=== PATIENT | female | born 1990 | race Caucasian/White ===

== ENCOUNTER 2018-04-04 10:01 | Emergency (ER) | payer BC ==
[2018-04-04] MEDS ORDERED: MORPHINE SULFATE 4 MG INJ IV ONE ×2 (10:32→12:18)
[2018-04-04] MEDS ORDERED: Sodium Chloride 0.9% 1000 ML 1,000 ML IV STA (10:32)
[2018-04-04] MEDS ORDERED: Phenergan 25 MG INJ IV ONE (10:33)
[2018-04-04] MEDS ORDERED: Sodium Chloride 0.9% 1000 ML 1,000 ML ONE (10:37)
[2018-04-04] MEDS ORDERED: MORPHINE SULFATE 4 MG INJ ONE ×2 (10:37→12:20)
[2018-04-04] MEDS ORDERED: Phenergan 25 MG INJ ONE (10:37)
--- NOTE | 2018-04-04 10:37 | ERPHSYRPT ---
- History of Present Illness Time Seen by Provider: 04/04/18 10:33 Historian: patient Exam Limitations: no limitations Patient Subjective Stated Complaint: ruq abd pain, nausea, left flank pain, and mid back pain for three days. also having some nausea. denies vomiting. states has had this pain before and is going to get worked up for gallbladder disease. Triage Nursing Assessment: ambulated to room per self without difficulty. skin w/d, color normal, resp easy. holding upper abd. bowel sounds hypoactive, abd soft, tender upper quads. Physician History: 27-year-old white female who denies significant past medical history. Arrives with complaint of epigastric pain and nausea symptoms going on off and on for a year this time for the past 3 days positive nausea no vomiting no fevers. Past medical history includes tonsillectomy adenoidectomy left arm fracture stent for kidney stones. Patient has had a Nexplanon implanted and does not know when her last period was. Social history positive for tobacco use denies alcohol or illicit drug use. Timing/Duration: day(s) Activities at Onset: none (3 days) Quality: cramping Abdominal Pain Onset Location: epigastric Pain Radiation: no radiation Associated Symptoms: back, nausea, No chest pain, No diaphoresis, No diarrhea, No fever/chills, No fatigue, No headache, No heartburn, No loss of appetite, No neck pain, No rash, No shortness of breath, No syncope, No vomiting Previous symptoms: other (patient has had similar symptoms off and on for 1 year ) Allergies/Adverse Reactions: No Known Drug Allergies Allergy (Unverified 04/04/18 10:30) Home Medications: Citalopram Hydrobromide [Celexa] 10 mg PO DAILY 04/04/18 [History] Etonogestrel [Nexplanon] 68 mg SQ UD 04/04/18 [History] Hx Tetanus, Diphtheria Vaccination/Date Given: No Hx Influenza Vaccination/Date Given: Yes Hx Pneumococcal Vaccination/Date Given: No - Review of Systems Constitutional: No Fever, No Chills Eyes: No Symptoms Ears, Nose, & Throat: No Symptoms Respiratory: No Cough, No Dyspnea Cardiac: No Chest Pain, No Edema, No Syncope Abdominal/Gastrointestinal: Abdominal Pain, Nausea, No Vomiting, No Diarrhea, No Constipation, No Hematemesis, No Hematochezia, No Melena, No Dysphagia, No Appetite Changes Genitourinary Symptoms: No Dysuria Musculoskeletal: No Back Pain, No Neck Pain Skin: No Rash Neurological: No Dizziness, No Focal Weakness, No Sensory Changes Psychological: No Symptoms Endocrine: No Symptoms All Other Systems: Reviewed and Negative - Past Medical History Pertinent Past Medical History: Yes History: Other Psycho-Social History: Depression Female Reproductive Disorders: Other Other Medical History: kidney stones - Past Surgical History Past Surgical History: Yes Genitourinary: Other Other Surgical History: ureteral stent - Social History Smoking Status: Current every day smoker Exposure to second hand smoke: No Drug Use: none Patient Lives Alone: No - Female History Hx Last Menstrual Period: unknown Hx Now: No - Nursing Vital Signs Nursing Vital Signs: Initial Vital Signs Temperature 98.5 F 04/04/18 10:07 Pulse Rate 99 H 04/04/18 10:07 Respiratory Rate 16 04/04/18 10:07 Blood Pressure 143/84 04/04/18 10:07 O2 Sat by Pulse Oximetry 99 04/04/18 10:07 Pain Scale Pain Intensity 8 - Physical Exam General Appearance: no apparent distress, alert Eye Exam: PERRL/EOMI, eyes nml inspection Ears, Nose, Throat Exam: normal ENT inspection, pharynx normal, moist mucous membranes Neck Exam: normal inspection, non-tender, supple, full range of motion Respiratory Exam: normal breath sounds, lungs clear, No respiratory distress Cardiovascular Exam: regular rate/rhythm, normal heart sounds Gastrointestinal/Abdomen Exam: soft, normal bowel sounds, tenderness ( epigastric tenderness), No distention, No mass, No guarding, No pulsatile mass Back Exam: normal inspection, normal range of motion, No CVA tenderness, No vertebral tenderness Extremity Exam: normal inspection, normal range of motion, pelvis stable Neurologic Exam: alert, oriented x 3, cooperative, cottrell operator II-XII nml as tested, normal mood/affect, nml cerebellar function, sensation nml, No motor deficits Skin Exam: normal color, warm, dry SpO2 Interpretation: normal (99%) SpO2: 99 Oxygen Delivery: Room Air - Course Nursing assessment & vital signs reviewed: Yes EKG Interpreted by Me: RATE (69 bpm), Sinus Rhythm, NORMAL AXIS, Other (EKG sinus rhythm, 69 bpm, normal axis, no acute ST or T wave changes, normal EKG) - CT Exams Abdomen/Pelvis CT Interpretation: Tele-radiologist Report (CT abdomen and pelvis: Impression 1. Nonobstructing nephrolithiasis. 2. Bilateral hydronephrosis with the ureter is dilated to the pelvis. No stones or an etiology for the obstruction is identified. 3. Cystic lesion posterior to the uterus questionably ovarian) Ordered Tests: Active Orders 24 hr Category Date Time Status EKG-ER Only STAT Care 04/04/18 12:17 Active IV Insertion STAT Care 04/04/18 10:32 Active ABDOMEN WITHOUT CONTRAST [CT] Stat Exams 04/04/18 11:18 Taken AMYLASE Stat Lab 04/04/18 10:35 Completed CBC W DIFF Stat Lab 04/04/18 10:35 Completed CMP Stat Lab 04/04/18 10:35 Completed HCG QUALITATIVE,SERUM Stat Lab 04/04/18 10:35 Completed LIPASE Stat Lab 04/04/18 10:35 Completed UA W/RFX UR CULTURE Stat Lab 04/04/18 10:35 Completed Urine Triage Profile Stat Lab 04/04/18 10:35 Completed Medication Summary Discontinued Medications Generic Name Dose Route Start Last Admin Trade Name Freq PRN Reason Stop Dose Admin Sodium Chloride 1,000 mls @ 999 mls/hr 04/04/18 10:32 04/04/18 12:19 Sodium Chloride 0.9% 1000 Ml IV 04/04/18 11:32 Infused .Q1H1M STA Infusion Sodium Chloride Confirm 04/04/18 10:37 Sodium Chloride 0.9% 1000 Ml Administered 04/04/18 10:38 Dose 1,000 mls @ ud .ROUTE .STK-MED ONE Morphine Sulfate 4 mg 04/04/18 10:32 04/04/18 10:44 Morphine Sulfate 4 Mg Inj IV 04/04/18 10:33 4 mg STAT ONE Administration Morphine Sulfate Confirm 04/04/18 10:37 Morphine Sulfate 4 Mg Inj Administered 04/04/18 10:38 Dose 4 mg .ROUTE .STK-MED ONE Morphine Sulfate 4 mg 04/04/18 12:18 04/04/18 12:24 Morphine Sulfate 4 Mg Inj IV 04/04/18 12:19 4 mg STAT ONE Administration Morphine Sulfate Confirm 04/04/18 12:20 Morphine Sulfate 4 Mg Inj Administered 04/04/18 12:21 Dose 4 mg .ROUTE .STK-MED ONE Promethazine HCl 12.5 mg 04/04/18 10:33 04/04/18 10:44 Phenergan 25 Mg Inj IV 04/04/18 10:34 12.5 mg STAT ONE Administration Promethazine HCl Confirm 04/04/18 10:37 Phenergan 25 Mg Inj Administered 04/04/18 10:38 Dose 25 mg .ROUTE .STK-MED ONE Lab/Rad Data: Laboratory Result Diagrams 04/04/18 10:35 04/04/18 10:35 Laboratory Results 04/04/18 04/04/18 04/04/18 Range/Units 10:35 10:35 10:35 WBC (4.0-10.5) K/mm3 RBC (4.1-5.4) M/mm3 Hgb (12.0-16.0) gm/dl Hct (35-47) % MCV (78-100) fl MCH (26-32) pg MCHC (32-36) g/dl RDW (11.5-14.0) % Plt Count (150-450) K/mm3 MPV (6-9.5) fl Gran % (36.0-66.0) % Eos # (Auto) (0-0.5) Absolute Lymphs (auto) (1.0-4.6) Absolute Monos (auto) (0.0-1.3) Lymphocytes % (24.0-44.0) % Monocytes % (0.0-12.0) % Eosinophils % (0.00-5.0) % Basophils % (0.0-0.4) % Absolute Granulocytes (1.4-6.9) Basophils # (0-0.4) Sodium (137-145) mmol/L Potassium (3.5-5.1) mmol/L Chloride (98-107) mmol/L Carbon Dioxide (22-30) mmol/L Anion Gap (5-15) MEQ/L BUN (7-17) mg/dL Creatinine (0.52-1.04) mg/dL Estimated GFR ML/MIN Glucose (74-106) mg/dL Calcium (8.4-10.2) mg/dL Total Bilirubin (0.2-1.3) mg/dL AST (14-36) U/L ALT (0-35) U/L Alkaline Phosphatase (38-126) U/L Serum Total Protein (6.3-8.2) g/dL Albumin (3.5-5.0) g/dL Amylase (30-110) U/L Lipase (23-300) U/L Serum , Qual NEGATIVE (Negative) Ur Collection Type CLEAN CATCH Urine Color YELLOW (YELLOW) Urine Appearance HAZY (CLEAR) Urine pH 8.0 (5-6) Ur Specific [place] 1.010 (1.005-1.025) Urine Protein NEGATIVE (Negative) Urine Ketones NEGATIVE (NEGATIVE) Urine Blood NEGATIVE (0-5) Rohith/ul Urine Nitrite NEGATIVE (NEGATIVE) Urine Bilirubin NEGATIVE (NEGATIVE) Urine Urobilinogen NORMAL (0-1) mg/dL Ur Leukocyte Esterase NEGATIVE (NEGATIVE) Urine Culture Reflexed NO (NO) Urine Glucose NEGATIVE (NEGATIVE) mg/dL Urine Opiates Level NEGATIVE (NEGATIVE) Ur Methadone NEGATIVE (NEGATIVE) Urine Barbiturates NEGATIVE (NEGATIVE) Ur Phencyclidine (PCP) NEGATIVE (NEGATIVE) Urine Amphetamine NEGATIVE (NEGATIVE) U Benzodiazepine Level NEGATIVE (NEGATIVE) Urine Cocaine NEGATIVE (NEGATIVE) Urine Marijuana (THC) NEGATIVE (NEGATIVE) Specimen Received 04/04/18 1030 04/04/18 04/04/18 Range/Units 10:35 10:35 WBC 8.7 (4.0-10.5) K/mm3 RBC 4.59 (4.1-5.4) M/mm3 Hgb 14.2 (12.0-16.0) gm/dl Hct 41.8 (35-47) % MCV 91.1 (78-100) fl MCH 30.9 (26-32) pg MCHC 34.0 (32-36) g/dl RDW 13.4 (11.5-14.0) % Plt Count 234 (150-450) K/mm3 MPV 10.9 H (6-9.5) fl Gran % 66.7 H (36.0-66.0) % Eos # (Auto) 0.25 (0-0.5) Absolute Lymphs (auto) 1.98 (1.0-4.6) Absolute Monos (auto) 0.62 (0.0-1.3) Lymphocytes % 22.8 L (24.0-44.0) % Monocytes % 7.1 (0.0-12.0) % Eosinophils % 2.9 (0.00-5.0) % Basophils % 0.5 (0.0-0.4) % Absolute Granulocytes 5.81 (1.4-6.9) Basophils # 0.04 (0-0.4) Sodium 141 (137-145) mmol/L Potassium 3.8 (3.5-5.1) mmol/L Chloride 106 (98-107) mmol/L Carbon Dioxide 25 (22-30) mmol/L Anion Gap 14.6 (5-15) MEQ/L BUN 13 (7-17) mg/dL Creatinine 0.58 (0.52-1.04) mg/dL Estimated GFR > 60.0 ML/MIN Glucose 95 (74-106) mg/dL Calcium 9.5 (8.4-10.2) mg/dL Total Bilirubin 0.30 (0.2-1.3) mg/dL AST 15 (14-36) U/L ALT 17 (0-35) U/L Alkaline Phosphatase 53 (38-126) U/L Serum Total Protein 7.7 (6.3-8.2) g/dL Albumin 4.7 (3.5-5.0) g/dL Amylase 98 (30-110) U/L Lipase 99 (23-300) U/L Serum , Qual (Negative) Ur Collection Type Urine Color (YELLOW) Urine Appearance (CLEAR) Urine pH (5-6) Ur Specific [place] (1.005-1.025) Urine Protein (Negative) Urine Ketones (NEGATIVE) Urine Blood (0-5) Rohith/ul Urine Nitrite (NEGATIVE) Urine Bilirubin (NEGATIVE) Urine Urobilinogen (0-1) mg/dL Ur Leukocyte Esterase (NEGATIVE) Urine Culture Reflexed (NO) Urine Glucose (NEGATIVE) mg/dL Urine Opiates Level (NEGATIVE) Ur Methadone (NEGATIVE) Urine Barbiturates (NEGATIVE) Ur Phencyclidine (PCP) (NEGATIVE) Urine Amphetamine (NEGATIVE) U Benzodiazepine Level (NEGATIVE) Urine Cocaine (NEGATIVE) Urine Marijuana (THC) (NEGATIVE) Specimen Received - Progress Progress: improved Progress Note: 04/04/18 13:01 27-year-old white female who states she's had abdominal pain off and on for the past year. But states that she is having severe abdominal pain for the past 3 days. Pain initially was as stated that it was in the epigastric region however she is told the nurse that she's been having pain on bilateral right than left mid abdominal area. Over the last couple days. Patient has been nauseous. She gives me a history of having a urinary stent secondary kidney stones. Patient is given a liter of saline Phenergan, given morphine 4 mg IV 2. She is feeling somewhat improved. I did get a CT of her abdomen which shows nonobstructing nephrolithiasis, bilateral hydronephrosis with the dilated to the pelvis no stones or etiology of the obstruction is identified. There is a cystic lesion posterior to the uterus questionably ovarian. Patient is improved but continues with complaint of pain mostly in the epigastric region. Patient's gallbladder is normal on the CT amylase lipase and CBC CMP are normal as well urine is normal. Patient states she has seen Dr. Ritter in the past for her kidneys. Will talk with him due to the patient's hydronephrosis. 04/04/18 13:21 I discussed the patient's case with Dr Ritter, the patient's urologist he requested that I have the patient call his office tomorrow am at 09:00 and have her plan to see him in his office tomorrow afternoon, Will write a prescription for norco and phenergan , and have her plan to see Dr Ritter tomorro transientw. - Departure Time of Disposition: 13:25 Departure Disposition: Home Clinical Impression: Abdominal pain Qualifiers: Abdominal location: epigastric Qualified Code(s): R10.13 - Epigastric pain Hydronephrosis Qualifiers: Hydronephrosis type: unspecified Qualified Code(s): N13.30 - Unspecified hydronephrosis Condition: Fair Critical Care Time: No Referrals: SADA MAYBERRY MD [Primary Care Provider] - Instructions: Acute Abdomen (Belly Pain) Additional Instructions: Return home . Plenty of fluids clear fluids only 24-48 hours if abdominal pain. Follow-up with Dr. Jolly tomorrow call his office at 9 AM to arrange an appointment. [place] 5/325 #12 one orally every 4-6 hours as needed for pain.. Phenergan 25 mg #12 one orally every 4-6 hours as needed for nausea. Return for acute distress or for severe symptoms. Prescriptions: Hydrocodone/Acetaminophen [[place] 5-325 Tablet] 1 tab PO Q4-6HPRN PRN #12 tablet MDD 6 tablets PRN Reason: Pain Promethazine HCl 25 mg [Phenergan 25 mg] 25 mg PO Q4-6HPRN PRN #12 tablet PRN Reason: nausea and vomiting
[2018-04-04 10:40] LABS: Appearance HAZY (CLEAR); Bilirubin NEGATIVE (NEGATIVE); Blood NEGATIVE Ery/ul (0-5); Glucose NEGATIVE (NEGATIVE); Ketones NEGATIVE (NEGATIVE); Leukocyte Esterase NEGATIVE (NEGATIVE); Nitrite NEGATIVE (NEGATIVE); Protein,Urine Dip NEGATIVE (Negative); Urobilinogen NORMAL mg/dL (0-1)
[2018-04-04 10:43] LABS: BASOPHIL % 0.5 % (0.0-0.4); Basophil (Absolute #) 0.04 (0-0.4); Eosinophil % 2.9 % (0.00-5.0); Eosinophil (Absolute #) 0.25 (0-0.5); Granulocyte Absolute (ANC) 5.81 (1.4-6.9); Granulocytes % 66.7 % (36.0-66.0); Hematocrit 41.8 % (35-47); Hemoglobin 14.2 gm/dl (12.0-16.0); Lymphocyte (Absolute #) 1.98 (1.0-4.6); Lymphocytes % 22.8 % (24.0-44.0); Mean Cell Volume 91.1 fl (78-100); Mean Corpuscular Hemoglobin 30.9 pg (26-32); Mean Platelet Volume 10.9 fl (6-9.5); Monocyte (Absolute #) 0.62 (0.0-1.3); Monocytes % 7.1 % (0.0-12.0); Platelet Count 234 K/mm3 (150-450); Red Blood Count 4.59 M/mm3 (4.1-5.4); Red Cell Distribution Width 13.4 % (11.5-14.0); White Blood Count 8.7 K/mm3 (4.0-10.5)
[2018-04-04 11:02] LABS: ALBUMIN 4.7 g/dL (3.5-5.0); ALKALINE PHOSPHATASE 53 U/L (38-126); AMYLASE 98 U/L (30-110); ANION GAP 14.6 MEQ/L (5-15); BLOOD UREA NITROGEN 13 mg/dL (7-17); CHLORIDE 106 mmol/L (98-107); Calcium 9.5 mg/dL (8.4-10.2); Carbon Dioxide 25 mmol/L (22-30); Creatinine 1 0.58 mg/dL (0.52-1.04); Glucose 95 mg/dL (74-106); LIPASE 99 U/L (23-300); Potassium 3.8 mmol/L (3.5-5.1); SGOT/AST 15 U/L (14-36); SGPT/ALT 17 U/L (0-35); SODIUM 141 mmol/L (137-145); Total Protein 7.7 g/dL (6.3-8.2)
[2018-04-04 11:37] LABS: Amphetamine,Urine NEGATIVE (NEGATIVE); Barbiturate,Urine NEGATIVE (NEGATIVE); Benzodiazepine,Urine NEGATIVE (NEGATIVE); Cocaine,Urine NEGATIVE (NEGATIVE); Methadone,Urine NEGATIVE (NEGATIVE); Opiate,Urine NEGATIVE (NEGATIVE); PCP,Urine NEGATIVE (NEGATIVE); THC,Urine NEGATIVE (NEGATIVE)
[2018-04-04 12:03] VITALS: O2SAT 99
[2018-04-04 13:03] VITALS: BP 102/68; PULSE 80
--- NOTE | 2018-04-04 22:29 | XRAY ---
Indication: Abdominal pain. Multiple contiguous axial images obtained through the abdomen and pelvis without contrast as ordered. Comparison: None Lung bases images mild bilateral dependent atelectasis. No infiltrate or effusion. Heart is not enlarged. Noncontrasted stomach and bowel loops appear nonobstructed. Normal appendix. Mild diffuse scattered colonic fecal debris. Nonobstructing punctate calculus in each kidney. 4 cm retrouterine cystic mass probably ovary in etiology. Tiny cul-de-sac fluid presumed from rupture/leaking cyst. No free air. Remaining liver, gallbladder, pancreas, spleen, adrenal glands, kidneys, ureters, bladder, uterus, and aorta appear unremarkable for noncontrast exam. Osseous structures intact. Small fatty umbilical hernia. Impression: 1. Nonobstructing bilateral renal micro-calculi. 2. 4 cm retrouterine cystic mass probably ovary in etiology. Also tiny cul-de-sac fluid presumed physiologic from rupture/leaking cyst. Pelvic sonogram may yield further information if clinically warranted. 3. Mild fecal stasis without obstruction. 4. Small fatty umbilical hernia. Comment: Preliminary interpretation was made by [facility]. No critical discrepancy. CTDI 15.09
== END 2018-04-04 13:49 | disposition home or self-care (01) ==
LOC: ED 10:01
DX: R10.13 Epigastric pain (principal); N13.30 Unspecified hydronephrosis; Z79.899 Other long term (current) drug therapy
CPT/HCPCS: 36000; 36415; 74150; 74176; 80053; 80307; 81002; 82150; 83690; 84703; 85025; 93005; 96360; 96374; 96375; 96376; 99284; J2270; J2550

== ENCOUNTER 2018-04-06 23:30 | Emergency (ER) | payer BC ==
[2018-04-06] MEDS ORDERED: Sodium Chloride 0.9% 1000 ML 1,000 ML ONE (23:45)
[2018-04-06] MEDS ORDERED: MORPHINE SULFATE 4 MG INJ ONE (23:58)
[2018-04-06] MEDS ORDERED: Phenergan 25 MG INJ ONE (23:58)
--- NOTE | 2018-04-07 00:33 | ERPHSYRPT ---
- History of Present Illness Time Seen by Provider: 04/06/18 23:50 Historian: patient Exam Limitations: no limitations Patient Subjective Stated Complaint: see paper chart Triage Nursing Assessment: see paper chart Physician History: This is a 27-year-old white female with history of kidney stones She was seen here 2 days ago secondary to bilateral abdominal pain epigastric pain. At that time patient was noted to have bilateral hydronephrosis. Patient's labs were essentially negative patient was given IV fluids given morphine. Her case was discussed with Dr. Jolly in [place] patient was released with Carleton and Phenergan and she was to follow-up with Dr. Ritter the following day. The patient states that she went to [facility] the following day she was admitted she states that she had Lasic treatment. She states that she was scheduled for possible cystoscopy this morning however she was released by her urologist he states that he did not feel that she had hydronephrosis despite it being seen on CT in this hospital. Patient states now she is having continued the diffuse abdominal pain no vomiting. Past medical history includes kidney stones, Past surgical history includes kidney stones removed and tonsillectomy, Social history includes tobacco use, Timing/Duration: other (patient seen 2 days ago for the same complaint, she was then evaluated the following day and this morning at [facility]. Pain resumed today.) Activities at Onset: none Quality: burning, cramping Abdominal Pain Onset Location: generalized abdomen Severity of Pain-Max: moderate Severity of Pain-Current: moderate Modifying Factors: Improves With: nothing (she was vomiting), vomiting Associated Symptoms: back Previous symptoms: same symptoms as today Allergies/Adverse Reactions: No Known Drug Allergies Allergy (Unverified 04/04/18 10:30) Home Medications: Citalopram Hydrobromide [Celexa] 10 mg PO DAILY 04/04/18 [History] Etonogestrel [Nexplanon] 68 mg SQ UD 04/04/18 [History] Hx Tetanus, Diphtheria Vaccination/Date Given: No Hx Influenza Vaccination/Date Given: Yes Hx Pneumococcal Vaccination/Date Given: No - Review of Systems Constitutional: No Fever, No Chills Eyes: No Symptoms Ears, Nose, & Throat: No Symptoms Respiratory: No Cough, No Dyspnea Cardiac: No Chest Pain, No Edema, No Syncope Abdominal/Gastrointestinal: Abdominal Pain, Nausea, Vomiting Genitourinary Symptoms: No Dysuria Musculoskeletal: No Back Pain, No Neck Pain Skin: No Rash Neurological: No Dizziness, No Focal Weakness, No Sensory Changes Psychological: No Symptoms Endocrine: No Symptoms All Other Systems: Reviewed and Negative - Past Medical History Pertinent Past Medical History: Yes History: Other Psycho-Social History: Depression Female Reproductive Disorders: Other Other Medical History: kidney stones - Past Surgical History Past Surgical History: Yes Genitourinary: Other Other Surgical History: ureteral stent - Social History Smoking Status: Current every day smoker How long have you smoked: 0.25 Exposure to second hand smoke: No Drug Use: none Patient Lives Alone: No - Female History Hx Now: No - Nursing Vital Signs Nursing Vital Signs: Initial Vital Signs Pulse Rate 75 04/07/18 01:27 Blood Pressure 100/63 04/07/18 01:27 O2 Sat by Pulse Oximetry 99 04/07/18 01:27 Pain Scale Pain Intensity 9 - Physical Exam General Appearance: moderate distress Eye Exam: PERRL/EOMI, eyes nml inspection Ears, Nose, Throat Exam: normal ENT inspection, pharynx normal, moist mucous membranes Neck Exam: normal inspection, non-tender, supple, full range of motion Respiratory Exam: normal breath sounds, lungs clear, No respiratory distress Cardiovascular Exam: regular rate/rhythm, normal heart sounds Gastrointestinal/Abdomen Exam: soft, normal bowel sounds, tenderness (diffuse tenderness), No distention, No mass, No guarding, No rebound Back Exam: normal inspection, normal range of motion, No CVA tenderness, No vertebral tenderness Extremity Exam: normal inspection, normal range of motion, pelvis stable Neurologic Exam: alert, oriented x 3, cooperative, normal mood/affect, nml cerebellar function, sensation nml, No motor deficits Skin Exam: normal color, warm, dry SpO2 Interpretation: normal (99%) Ordered Tests: Active Orders 24 hr Category Date Time Status AMYLASE Routine Lab 04/07/18 00:30 Completed CBC Routine Lab 04/07/18 00:30 Completed CMP Routine Lab 04/07/18 00:30 Completed HCG QUALITATIVE,SERUM Routine Lab 04/07/18 00:30 Completed LIPASE Routine Lab 04/07/18 00:30 Completed UA W/RFX UR CULTURE Routine Lab 04/07/18 00:30 Completed Urine Triage Profile Routine Lab 04/07/18 00:30 Completed Medication Summary Generic Name Dose Route Start Last Admin Trade Name Royer PRN Reason Stop Dose Admin Sodium Chloride 1,000 mls @ 999 mls/hr 04/07/18 01:53 04/07/18 01:59 Sodium Chloride 0.9% 1000 Ml IV 04/07/18 02:53 100 mls/hr .Q1H1M STA Administration Discontinued Medications Generic Name Dose Route Start Last Admin Trade Name Royer PRN Reason Stop Dose Admin Sodium Chloride Confirm 04/07/18 01:54 Sodium Chloride 0.9% 1000 Ml Administered 04/07/18 01:55 Dose 1,000 mls @ ud .ROUTE .STK-MED ONE Morphine Sulfate 2 mg 04/07/18 01:53 04/07/18 01:58 Morphine Sulfate 2 Mg Inj IV 04/07/18 01:54 2 mg STAT ONE Administration Morphine Sulfate Confirm 04/07/18 01:54 Morphine Sulfate 2 Mg Inj Administered 04/07/18 01:55 Dose 2 mg .ROUTE .STK-MED ONE Lab/Rad Data: Laboratory Result Diagrams 04/07/18 00:30 04/07/18 00:30 Laboratory Results 04/07/18 04/07/18 04/07/18 Range/Units 00:30 00:30 00:30 WBC (4.0-10.5) K/mm3 RBC (4.1-5.4) M/mm3 Hgb (12.0-16.0) gm/dl Hct (35-47) % MCV (78-100) fl MCH (26-32) pg MCHC (32-36) g/dl RDW (11.5-14.0) % Plt Count (150-450) K/mm3 MPV (6-9.5) fl Sodium (137-145) mmol/L Potassium (3.5-5.1) mmol/L Chloride (98-107) mmol/L Carbon Dioxide (22-30) mmol/L Anion Gap (5-15) MEQ/L BUN (7-17) mg/dL Creatinine (0.52-1.04) mg/dL Estimated GFR ML/MIN Glucose (74-106) mg/dL Calcium (8.4-10.2) mg/dL Total Bilirubin (0.2-1.3) mg/dL AST (14-36) U/L ALT (0-35) U/L Alkaline Phosphatase (38-126) U/L Serum Total Protein (6.3-8.2) g/dL Albumin (3.5-5.0) g/dL Amylase (30-110) U/L Lipase (23-300) U/L Serum , Qual NEGATIVE (Negative) Ur Collection Type CLEAN CATCH Urine Color YELLOW (YELLOW) Urine Appearance CLEAR (CLEAR) Urine pH 7.0 (5-6) Ur Specific [place] 1.010 (1.005-1.025) Urine Protein NEGATIVE (Negative) Urine Ketones NEGATIVE (NEGATIVE) Urine Blood NEGATIVE (0-5) Rohith/ul Urine Nitrite NEGATIVE (NEGATIVE) Urine Bilirubin NEGATIVE (NEGATIVE) Urine Urobilinogen NORMAL (0-1) mg/dL Ur Leukocyte Esterase NEGATIVE (NEGATIVE) Urine Culture Reflexed NO (NO) Urine Glucose NEGATIVE (NEGATIVE) mg/dL Urine Opiates Level POSITIVE (NEGATIVE) Ur Methadone NEGATIVE (NEGATIVE) Urine Barbiturates NEGATIVE (NEGATIVE) Ur Phencyclidine (PCP) NEGATIVE (NEGATIVE) Urine Amphetamine NEGATIVE (NEGATIVE) U Benzodiazepine Level NEGATIVE (NEGATIVE) Urine Cocaine NEGATIVE (NEGATIVE) Urine Marijuana (THC) NEGATIVE (NEGATIVE) Specimen Received 04/07/18 04/07/18 04/07/18 Range/Units 00:30 00:30 WBC 6.8 (4.0-10.5) K/mm3 RBC 4.32 (4.1-5.4) M/mm3 Hgb 13.3 (12.0-16.0) gm/dl Hct 39.5 (35-47) % MCV 91.4 (78-100) fl MCH 30.8 (26-32) pg MCHC 33.7 (32-36) g/dl RDW 13.1 (11.5-14.0) % Plt Count 217 (150-450) K/mm3 MPV 11.1 H (6-9.5) fl Sodium 142 (137-145) mmol/L Potassium 3.9 (3.5-5.1) mmol/L Chloride 106 (98-107) mmol/L Carbon Dioxide 26 (22-30) mmol/L Anion Gap 13.9 (5-15) MEQ/L BUN 8 (7-17) mg/dL Creatinine 0.50 L (0.52-1.04) mg/dL Estimated GFR > 60.0 ML/MIN Glucose 114 H (74-106) mg/dL Calcium 9.3 (8.4-10.2) mg/dL Total Bilirubin 0.30 (0.2-1.3) mg/dL AST 21 (14-36) U/L ALT 19 (0-35) U/L Alkaline Phosphatase 49 (38-126) U/L Serum Total Protein 7.5 (6.3-8.2) g/dL Albumin 4.7 (3.5-5.0) g/dL Amylase 49 (30-110) U/L Lipase 59 (23-300) U/L Serum , Qual (Negative) Ur Collection Type Urine Color (YELLOW) Urine Appearance (CLEAR) Urine pH (5-6) Ur Specific [place] (1.005-1.025) Urine Protein (Negative) Urine Ketones (NEGATIVE) Urine Blood (0-5) Rohith/ul Urine Nitrite (NEGATIVE) Urine Bilirubin (NEGATIVE) Urine Urobilinogen (0-1) mg/dL Ur Leukocyte Esterase (NEGATIVE) Urine Culture Reflexed (NO) Urine Glucose (NEGATIVE) mg/dL Urine Opiates Level (NEGATIVE) Ur Methadone (NEGATIVE) Urine Barbiturates (NEGATIVE) Ur Phencyclidine (PCP) (NEGATIVE) Urine Amphetamine (NEGATIVE) U Benzodiazepine Level (NEGATIVE) Urine Cocaine (NEGATIVE) Urine Marijuana (THC) (NEGATIVE) Specimen Received - Progress Progress: improved Progress Note: 04/07/18 01:54 This is a 27-year-old white female with history of kidney stones and would had a stent when she was for her kidney stones. She was initially seen on April 04, 2018 with complaint of epigastric abdominal pain and bilateral mid abdominal pain associated with vomiting. At that time patient was given IV fluids labs were obtained patient was given morphine and Phenergan patient had a CT without contrast which was read by virtual radiology as having bilateral hydronephrosis there were no obstructing ureteral stones. 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 Patient was referred to Dr. Ritter [place] after talking to him on the phone. Patient was feeling somewhat better she was released with Phenergan and Carleton apparently did however she began feeling worse that following evening and presented to [facility]. She was admitted to [facility] seen by Dr. Jolly she had a Lasix with washout procedure he was felt that she had normal kidney functions patient was placed on IV fluids and pain control she was apparently released on 2017 patient states she continues to have pain now in the suprapubic region and she states she is vomiting Patient is given IV morphine 4 mg IV also normal saline 1 L labs including CBC CMP amylase lipase hCG urinalysis are all negative. Vitals are stable. I went back in to talk with the patient I inquired whether she would like to be transferred back to her family physician in [place] that she would like me to consider talking to hospitalist here or whether she would prefer IV fluids pain medicine and follow-up with her family doctor. She states that she would like to go to [facility]. She states that she has seen several different physicians and has received several different answers concerning this and would like to try [facility]. I've contacted [facility] one call auto accept. He states that the patient meets criteria for transfer . Will give patient an additional 2 mg of morphine IV begin normal saline at 100 mL per hour plan on transferring the patient. He will call back with an accepting physician. 04/07/18 02:16 Accepting physician at [facility] is Dr Nash. - Departure Time of Disposition: 01:59 Departure Disposition: Transfer ([facility] Dr Nash) Clinical Impression: Intractable abdominal pain Abdominal pain Qualifiers: Abdominal location: generalized Qualified Code(s): R10.84 - Generalized abdominal pain Condition: Fair Critical Care Time: No Referrals: SADA MAYBERRY MD [Primary Care Provider] -
[2018-04-07 01:17] LABS: Hematocrit 39.5 % (35-47); Hemoglobin 13.3 gm/dl (12.0-16.0); Mean Cell Volume 91.4 fl (78-100); Mean Corpuscular Hemoglobin 30.8 pg (26-32); Mean Corpuscular Hgb Concent. 33.7 g/dl (32-36); Mean Platelet Volume 11.1 fl (6-9.5); Platelet Count 217 K/mm3 (150-450); Red Blood Count 4.32 M/mm3 (4.1-5.4); Red Cell Distribution Width 13.1 % (11.5-14.0); White Blood Count 6.8 K/mm3 (4.0-10.5)
[2018-04-07 01:18] LABS: ALBUMIN 4.7 g/dL (3.5-5.0); BLOOD UREA NITROGEN 8 mg/dL (7-17); CHLORIDE 106 mmol/L (98-107); Calcium 9.3 mg/dL (8.4-10.2); Carbon Dioxide 26 mmol/L (22-30); Glucose 114 mg/dL (74-106); Potassium 3.9 mmol/L (3.5-5.1); SODIUM 142 mmol/L (137-145); Total Protein 7.5 g/dL (6.3-8.2)
[2018-04-07 01:19] LABS: ALKALINE PHOSPHATASE 49 U/L (38-126); AMYLASE 49 U/L (30-110); ANION GAP 13.9 MEQ/L (5-15); LIPASE 59 U/L (23-300); SGOT/AST 21 U/L (14-36); SGPT/ALT 19 U/L (0-35)
[2018-04-07 01:20] LABS: Amphetamine,Urine NEGATIVE (NEGATIVE); Appearance CLEAR (CLEAR); Barbiturate,Urine NEGATIVE (NEGATIVE); Benzodiazepine,Urine NEGATIVE (NEGATIVE); Bilirubin NEGATIVE (NEGATIVE); Blood NEGATIVE Ery/ul (0-5); Cocaine,Urine NEGATIVE (NEGATIVE); Glucose NEGATIVE (NEGATIVE); Ketones NEGATIVE (NEGATIVE); Leukocyte Esterase NEGATIVE (NEGATIVE); Methadone,Urine NEGATIVE (NEGATIVE); Nitrite NEGATIVE (NEGATIVE); Opiate,Urine POSITIVE (NEGATIVE); PCP,Urine NEGATIVE (NEGATIVE); Protein,Urine Dip NEGATIVE (Negative); THC,Urine NEGATIVE (NEGATIVE); Urobilinogen NORMAL mg/dL (0-1)
[2018-04-07 01:29] VITALS: BP 100/63
[2018-04-07 01:52] VITALS: PULSE 78; O2SAT 98
[2018-04-07] MEDS ORDERED: MORPHINE SULFATE 2 MG INJ ONE (01:54)
[2018-04-07] MEDS ORDERED: Sodium Chloride 0.9% 1000 ML 1,000 ML ONE (01:54)
[2018-04-07] MEDS: MORPHINE SULFATE 2 MG INJ IV ONE (01:58)
[2018-04-07] MEDS: Sodium Chloride 0.9% 1000 ML 1,000 ML IV STA (01:59)
== END 2018-04-07 03:05 | disposition short-term general hospital (02) ==
LOC: ED 23:30
DX: R10.84 Generalized abdominal pain (principal); Z79.899 Other long term (current) drug therapy; Z87.442 Personal history of urinary calculi
CPT/HCPCS: 36000; 36415; 80053; 80307; 81002; 82150; 83690; 84703; 85027; 96360; 96361; 96374; 96375; 96376; 99284; J2270; J2550